=== PATIENT | male | born 1960 | race Caucasian/White ===

== ENCOUNTER 2023-08-05 06:22 | Day surgery (SDC) | payer MEDICARE, OTHER ==
[~2023-08-05] VITALS: Ht 170.2 cm; Wt 69.0 kg
[2023-08-05] VITALS (10 sets, daily range): BP systolic 125–157; BP diastolic 66–85
[~2023-08-05 06:22] MED LIST: ASPI81CH PO; ATOR40TA PO; CLOP75 PO; ERGO50000 PO; LISI20 PO; METFORMIN HCL500 M2 PO; OMEPRAZOLE MAGN20 M1 PO; ROSUVASTATIN CA20 MG PO; SILDENAFIL CIT100 MG PO; SYNTHROID75 MCG PO
[2023-08-05] MEDS ORDERED: LANS15EC PO (06:43)
[2023-08-05] MEDS ORDERED: LEVSOD75 PO (06:43)
[2023-08-05] MEDS ORDERED: ALBU90OI INH (06:44)
--- NOTE | 2023-08-05 08:05 | NUR ---
ASSUMED CARE OF PT POST PROCEDURE. PT AWAKE AND ORIENTED, EROS CHEST PAIN POST PROCEDURE. MONITOR SB 50'S, B/P 157/74, SPO2 94% RA, AFEBRILE. R RADIAL SITE NO SWELLING/HEMATOMA, PRELUDE BAND IN PLACE; RUE POSITIVE PLEUTH POST BAND PLACEMENT.
--- NOTE | 2023-08-05 10:30 | NUR ---
PT'S PRELUDE BAND FULLY DEFLATED, NO SWELLING/HEMATOMA PRESENT.
--- NOTE | 2023-08-05 10:40 | NUR ---
PT AMB TO BATHROOM, GAIT STEADY, SITE UNCHANGED AFTER ACTIVITY.
--- NOTE | 2023-08-05 11:30 | NUR ---
PT DRESSED SELF WITHOUT ISSUE, SITE UNCHANGED. PRELUDE BAND REMOVED, CLOTH DOT AND WRIST IMMOBILIZER PLACED; IV REMOVED, CANNULA INTACT.
--- NOTE | 2023-08-05 11:38 | NUR ---
PT AND RECEIVED DISCHARGE INSTRUCTIONS, MED LIST AND AFTER CARE INSTRUCTIONS; VERBALIZED GOOD UNDERSTANDING. PT LEFT FACILITY VIA W/C, CONDITION STABLE.
== END 2023-08-05 11:37 | disposition home or self-care (01) ==
LOC: MHTC 06:22
DX: I35.0 Nonrheumatic aortic (valve) stenosis (principal); E78.5 Hyperlipidemia, unspecified; I77.9 Disorder of arteries and arterioles, unspecified; Z86.73 Personal history of transient ischemic attack (TIA), and cerebral infarction without residual deficits; E11.9 Type 2 diabetes mellitus without complications; F17.210 Nicotine dependence, cigarettes, uncomplicated; I25.10 Atherosclerotic heart disease of native coronary artery without angina pectoris
CPT/HCPCS: 76937; 93454; 99152; 99153; A9270; C1769; C1887; C1894; J1644; J2250; J3010; J7030; J7050; Q9967

== ENCOUNTER 2023-08-09 11:56 | Emergency (ER) | payer MEDICARE, OTHER ==
[~2023-08-09] VITALS: Ht 170.2 cm; Wt 74.8 kg
[~2023-08-09 11:56] MED LIST changes: +ALBU90OI INH; +LANS15EC PO; +LEVSOD75 PO
[2023-08-09 13:35] VITALS: BP 133/85
== END 2023-08-09 13:41 | disposition home or self-care (01) ==
LOC: ER 11:56
DX: G89.18 Other acute postprocedural pain (principal); L76.32 Postprocedural hematoma of skin and subcutaneous tissue following other procedure; I25.10 Atherosclerotic heart disease of native coronary artery without angina pectoris; E78.5 Hyperlipidemia, unspecified; E03.9 Hypothyroidism, unspecified; Z98.890 Other specified postprocedural states; Z88.7 Allergy status to serum and vaccine; Z79.02 Long term (current) use of antithrombotics/antiplatelets; Z79.82 Long term (current) use of aspirin; Z79.890 Hormone replacement therapy; Z79.899 Other long term (current) drug therapy
CPT/HCPCS: 93931; 99283-25; A9270

== ENCOUNTER 2023-10-23 10:33 | Emergency (ER) | payer MEDICARE, OTHER ==
[~2023-10-23] VITALS: Ht 177.8 cm; Wt 77.1 kg
[2023-10-23 10:40] VITALS: BP 161/83
[2023-10-23] MEDS ORDERED: CORTIZONE-10 PL28 GM TOP (10:57)
[2023-10-23] MEDS ORDERED: MUPIROCIN1 G1 TOP (10:57)
[2023-10-23] MEDS ORDERED: IMIQUIMOD1 EACH TOP (11:01)
[2023-10-23] MEDS ORDERED: VARENICLINE TART1 M2 PO (11:02)
== END 2023-10-23 11:10 | disposition home or self-care (01) ==
LOC: ER 10:33
DX: N50.89 Other specified disorders of the male genital organs (principal); E78.5 Hyperlipidemia, unspecified; I10 Essential (primary) hypertension; E03.9 Hypothyroidism, unspecified; I25.10 Atherosclerotic heart disease of native coronary artery without angina pectoris; Z86.73 Personal history of transient ischemic attack (TIA), and cerebral infarction without residual deficits; Z79.82 Long term (current) use of aspirin; Z79.02 Long term (current) use of antithrombotics/antiplatelets; Z79.899 Other long term (current) drug therapy; Z88.7 Allergy status to serum and vaccine
CPT/HCPCS: 99282

== ENCOUNTER → 2025-07-15 | Outpatient (CLI) | payer MEDICARE ==
[~2025-07-15] MED LIST changes: +ACET500 PO; +C COMPLEX1000 M1 PO; +CELECOXIB100 MG PO; +CORTIZONE-10 PL28 GM TOP; +DOCU100 PO; +IMIQUIMOD1 EACH TOP; -LISI20 PO; +MUPIROCIN1 G1 TOP; +OXYC5 PO; +VARENICLINE TART1 M2 PO; +Vitamin B Comple1 EA PO; +XARELTO10 M4 PO; +ZESTRIL40 M1 PO
== END ==
LOC: LAB 12:30 → LAB SHORT 12:30
DX: L02.411 Cutaneous abscess of right axilla (principal)
CPT/HCPCS: 87070; 87075; 87077; 87147; 87186; 87205

== ENCOUNTER 2025-07-29 08:47 | Day surgery (SDC) | payer MEDICARE ==
[2025-07-29] VITALS (12 sets, daily range): BP systolic 107–166; BP diastolic 56–82
[~2025-07-29] VITALS: Ht 167.6 cm; Wt 68.9 kg
[~2025-07-29 08:47] MED LIST changes: -ACET500 PO; -DOCU100 PO; -OXYC5 PO; -XARELTO10 M4 PO
[2025-07-29] MEDS ORDERED: Tranexamic Acid 100 ML IV SCH (08:55)
[2025-07-29] MEDS ORDERED: CeFAZolin Sodium 2,000 MG in NS 100 ML IV SCH ×2 (08:55→20:30)
[2025-07-29] MEDS ORDERED: Ropivacaine 0.5% HCl/Pf 123.125 MG,EPINEPHrine HCL 0.25 MG,Ketorolac Tromethamine 15 MG... INFIL SCH (08:55)
[2025-07-29] MEDS ORDERED: Chlorhexidine Mouth Care 15 ML UDC MT SCH (08:55)
[2025-07-29] MEDS ORDERED: Metoclopramide HCl 5MG / ML 2ML Vial IV PRN ×3 (09:30→10:20)
[2025-07-29] MEDS ORDERED: Magnesium Hydroxide Conc 10 ML UDC PO PRN ×2 (09:30→09:40)
[2025-07-29] MEDS ORDERED: Ondansetron HCl 2 MG / ML 2ML Vial IV PRN ×2 (09:35→10:25)
[2025-07-29] MEDS ORDERED: HYDROmorphone HCl/Pf 1MG SYR IV PRN ×3 (09:35→10:25)
[2025-07-29] MEDS ORDERED: FLU VACC TS2025-26(6MOS UP)/PF 45 MCG/0.5 ML SYRINGE IM SCH (09:35)
--- NOTE | 2025-07-29 09:50 | NUR ---
PT PLACED GLASSES IN BELONGINGS BAG PER PT REQUEST. THIS RN OFFERED TO TAKE THEM TO PACU SO THEY WOULDN'T GET SMASHED. PT REFUSED.
--- NOTE | 2025-07-29 10:07 | NUR ---
BS READ 130
--- NOTE | 2025-07-29 10:10 | NUR ---
IV STARTED BY [facility] [place] [facility] [employer] ANALYST STUDENT
--- NOTE | 2025-07-29 10:10 | NUR ---
History, Chart, Medications and Allergies reviewed before start of procedure. Pre-Op teaching done. Pt verbalizes understanding. Patient confirms NPO status and agrees with scheduled surgery. PT WALKER AND BELONGING BAG WITH JACKET PLACED IN PACU. PT 2ND BELONGING BAG PLACED UNDER GURNEY.
[2025-07-29] MEDS ORDERED: FentaNYL Citrate 50 MCG/ML 2 ML Injection IV PRN ×3 (10:20→10:25)
[2025-07-29] MEDS ORDERED: Midazolam HCl 1MG / ML 2ML Vial IV PRN (10:25)
[2025-07-29] MEDS ORDERED: FentaNYL Citrate 50 MCG/ML 2 ML Injection ONE (10:37)
[2025-07-29] MEDS ORDERED: Insulin Regular 100 UNIT/ML 10ML Vial SC SCH (11:30)
--- NOTE | 2025-07-29 11:50 | NUR ---
THIS RN GAVE REPORT TO LIZETT NAVARRO AND HANDED VERSED 2MG TO MELANIE.
[2025-07-29] MEDS ORDERED: Ketorolac Tromethamine 15mg Vial IV SCH (12:00)
--- NOTE | 2025-07-29 15:03 | NUR ---
ASSUMED CARE OF PT @1445 AXO4. VSS. COMPLETELY NUMB DISTAL TO HIPS. DENYING PAIN. FLUIDS INFUSING. WILL ADMINISTER TXA ORDERED. TOLERATING PO INTAKE WELL. CALL LIGHT WITHIN REACH.
[2025-07-29] MEDS ORDERED: MetFORMIN HCl 500 mg PO SCH (17:00)
--- NOTE | 2025-07-29 18:36 | NUR ---
SUMMARY POST ASSUMPTION OF CARE- VSS. AXO4. PT STATES BEING FAIRLY NUMB STILL T/O LE'S. IS MOVING AND WIGGLING TOES NOW. CAP REFILL <3SEC. TXA INFUSED. 1L BAG OF LR INFUSED. AQUACEL DRESSING CDI. PT TOLERATING PO INTAKE WELL CURRENTLY. HAS NOT AMBULATED OR VOIDED YET. COLD PACK IN PLACE - PAIN CONTROLLED PER PT REPORT. CALL LIGHT WITHIN REACH.
[2025-07-30 00:05] VITALS: BP 162/80
[2025-07-30 04:05] VITALS: BP 144/76
--- NOTE | 2025-07-30 04:55 | NUR ---
CMM INSPECTOR SUMMARY PT IS POD 0 FOR R TKA. AAOX4 AND PLEASANT. PT HAS BEEN OOB AND UP TO THE BATHROOM SEVERAL TIMES TO VOID. AQUACEL DRESSING TO R KNEE C/D/I. PAIN HAS BEEN WELL CONTROLLED WITH OXYCODONE 5 MG. PT ABLE TO WIGGLE TOES AND HAS FULL SENSATION TO EXTREMETIES, DID HAVE SOME NUMBNESS AT START OF SHIFT DUE TO SPINAL DURING SURGERY. VSS, WCTM.
[2025-07-30 05:14] LABS: BASOPHILS ABSOLUTE AUTO 0.05 K/mm3 (0.00-0.23); BASOPHILS PERCENT AUTO 0 % (0-2); EOSINOPHILS ABSOLUTE AUTO 0.28 K/mm3 (0.00-0.68); EOSINOPHILS PERCENT AUTO 2 % (0-6); Hematocrit 39.2 % (37.0-53.0); Hemoglobin 13.0 g/dL (13.5-17.5); IMMATURE GRAN ABSOLUTE AUTO 0.03 K/mm3 (0.00-0.10); IMMATURE GRAN PERCENT AUTO 0 % (0-1); LYMPHOCYTES ABSOLUTE AUTO 2.04 K/mm3 (0.84-5.20); LYMPHOCYTES PERCENT AUTO 16 % (21-46); MONOCYTES ABSOLUTE AUTO 0.93 K/mm3 (0.16-1.47); MONOCYTES PERCENT AUTO 7 % (4-13); Mean Corpuscular HGB Conc 33.2 g/dL (31.5-36.5); Mean Corpuscular Volume 90 fL (80-100); NEUTROPHILS ABSOLUTE AUTO 9.28 K/mm3 (1.96-9.15); NEUTROPHILS PERCENT AUTO 74 % (41-73); NRBC ABSOLUTE 0.00 K/mm3 (0.00-0.02); NRBC Auto 0.0 /100 WBC (0.0-0.2); Platelet Count 204 K/mm3 (150-400); RDW Coefficient Variation 13.4 % (11.7-14.2); RDW Standard Deviation 44.4 fL (35.1-46.3)
[2025-07-30 06:43] LABS: Anion Gap 10.0 mmol/L (3-11); Blood Urea Nitrogen 19.0 mg/dL (8-24); CO2, Blood 23.0 mmol/L (21-32); Calcium, Blood 8.5 mg/dL (8.5-10.1); Chloride, Blood 107.0 mmol/L (98-108); Creatinine, Blood 0.84 mg/dL (0.60-1.20); Glucose, Blood 130.0 mg/dL (70-99); Magnesium, Blood 1.9 mg/dL (1.6-2.4); Potassium, Blood 3.7 mmol/L (3.5-5.5); Sodium, Blood 136.0 mmol/L (136-145)
[2025-07-30 07:26] VITALS: BP 147/70
[2025-07-30] MEDS ORDERED: ACET500 PO (09:06)
[2025-07-30] MEDS ORDERED: DOCU100 PO (09:07)
[2025-07-30] MEDS ORDERED: OXYC5 PO (09:07)
[2025-07-30] MEDS ORDERED: XARELTO10 M4 PO (09:07)
--- NOTE | 2025-07-30 09:31 | NUR ---
ASSUMED CARE OF PT @0700. AXO4. VSS. PAIN MEDS ADMIISTERED PER EMAR. PT TOELRATING PO INTAKE WELL. VOIDING. WORKED WITH PHYSICAL THERAPY- DEEMED APPROPAITE TO TRANSFER. AQUACEL DRESSING TO R KNEE CDI. DC INSTRUCTIONS PROVIDED TO PT- AWAITING FAMILY TO ARRIVE TO REINFORCE EDUCATION. IV PULLED. AWAITING DC RIDE NOW.
--- NOTE | 2025-07-30 10:31 | NUR ---
DC'D @1023 DC INSTRUCTIONS PROVIDED. VSS. AXO4. DRESSING CDI - EXTRA PROVIDED FOR HOME CHANGE OUT. PT WITH ALL BELONGINGS. WHEELED OUT TO PERSONAL VEHICLE WITH FAMILY @1023.
== END 2025-07-30 10:23 | disposition home or self-care (01) ==
LOC: ORSCMMR 08:47 → ORD 10:30 → ORSCMMR 10:30 → SURS 14:37 → ORSCMMR 07-30 10:23
PROVIDERS: Orthopaedic Surgery
PROC: 8E0Y0CZ Robotic Assisted Procedure of Lower Extremity, Open Approach (ICD-10-PCS; principal; 2025-07-29 10:30)
PROC: 0SRC0JA Replacement of Right Knee Joint with Synthetic Substitute, Uncemented, Open Approach (ICD-10-PCS; principal; 2025-07-29 10:30)
DX: M17.11 Unilateral primary osteoarthritis, right knee (principal); I10 Essential (primary) hypertension; Z87.891 Personal history of nicotine dependence; E11.9 Type 2 diabetes mellitus without complications; Z86.73 Personal history of transient ischemic attack (TIA), and cerebral infarction without residual deficits; E78.5 Hyperlipidemia, unspecified; E07.9 Disorder of thyroid, unspecified; Z79.899 Other long term (current) drug therapy; Z79.84 Long term (current) use of oral hypoglycemic drugs
CPT/HCPCS: 27447; 0055T; 36415; 73560-RT; 80048; 82947; 83735; 85025; 94762; 97110; 97116; 97161; A9270; C1713; C1776; J0166; J0690; J0735; J1885; J2250; J2704; J2795; J3010; J7120